=== PATIENT | male | born 1955 | race Caucasian/White ===

== ENCOUNTER → 2017-02-03 | Outpatient (CLI) | payer MEDICARE ==
[2017-02-03 17:04] LABS: BASOPHIL # 0.1 K/uL (0.0-0.2); BASOPHIL % 1.3 %; EOSINOPHIL # 0.2 K/uL (0.0-0.5); EOSINOPHIL % 2.7 %; HEMATOCRIT 42.6 % (37.0-53.0); HEMOGLOBIN 14.2 g/dL (11.0-16.0); IMMATURE GRANULOCYTE # 0.1 K/uL (0.0-0.3); IMMATURE GRANULOCYTE % 1.1 %; LYMPHOCYTE # 2.4 K/uL (0.8-4.0); LYMPHOCYTE % 26.2 %; MCH 33.3 pg (27.0-34.0); MCHC 33.3 gm/dL (32.0-36.5); MCV 99.8 fl (83.0-98.0); MONOCYTE # 0.7 K/uL (0.0-1.0); MONOCYTE % 7.9 %; MPV 11.9 fl (9.4-12.4); NEUTROPHIL # (ANC) 5.5 K/uL (1.4-9.0); NEUTROPHIL % 60.8 %; NRBC % 0 /100WBC (0-0.00); PLATELET COUNT 290 K/uL (150-450); RBC 4.27 M/uL (3.50-5.50); RDW-CV 13.6 % (11.9-14.6)
[2017-02-03 17:17] LABS: ALBUMIN 3.4 gm/dL (3.5-5.0); ALK PHOS 90 IU/L (33-138); ALT 27 IU/L (12-78); ANION GAP 9.8 (10.0-19.0); AST 19 IU/L (10-40); BLOOD UREA NITROGEN 9 mg/dL (6-24); CHLORIDE 105 mMol/L (96-110); CO2 27 mMol/L (22-32); CREATININE 0.6 mg/dL (0.6-1.3); POTASSIUM 3.8 mMol/L (3.7-5.1); SODIUM 138 mMol/L (135-145); TOTAL BILIRUBIN 0.3 mg/dL (0.0-1.5); TOTAL PROTEIN 6.9 g/dL (6.0-8.4)
== END | disposition disaster alternative care site (69) ==
LOC: LNHI 16:59
PROVIDERS: Surgery Vascular Surgery
DX: Z01.818 Encounter for other preprocedural examination (principal)

== ENCOUNTER → 2017-02-05 | Outpatient (CLI) | payer MEDICARE | END | disposition disaster alternative care site (69) | LOC: GRAD 10:51 | DX: I73.9 Peripheral vascular disease, unspecified (principal); T85.8 Other specified complications of internal prosthetic devices, implants and grafts, not elsewhere classified; I77.1 Stricture of artery; R93.8 Abnormal findings on diagnostic imaging of other specified body structures ==